=== PATIENT | female | born 1990 | race American Indian/Alaskan Native ===

== ENCOUNTER 2017-02-03 11:39 | Emergency (ER) | payer OTHER, MEDICAID ==
[2017-02-03 11:52] VITALS: BMI 26.4
[2017-02-03 12:01] VITALS: BP 131/77; PULSE 90; RESP 16; TEMP 98.2; O2SAT 100
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
--- NOTE | 2017-02-03 13:37 | RAD ---
PROCEDURE: Radiographs of the Chest and Left Ribs. HISTORY: injury COMPARISON: None available. TECHNIQUE: Frontal radiograph of the chest and multiple oblique radiographs of the left ribs were obtained. FINDINGS: LEFT RIBS: No acute displaced fracture identified. LUNGS: No focal consolidation. Please note that chest x-ray has limited sensitivity for the detection of pulmonary masses. PLEURA: No significant pleural effusion. No definite pneumothorax. CARDIOVASCULAR: Heart size appears within normal limits. OTHER FINDINGS: Bilateral nipple rings. IMPRESSION: Unremarkable radiographs of the chest and left ribs. No acute displaced left rib fracture identified.
--- NOTE | 2017-02-03 13:42 | RAD ---
PROCEDURE: Cervical Spine Radiographs. HISTORY: Pain. COMPARISON: None. FINDINGS: BONES: Alignment maintained. No fracture. Dens Intact. DISC SPACES: Normal. SOFT TISSUES: Normal. No prevertebral soft tissue swelling. OTHER FINDINGS: None. IMPRESSION: Unremarkable cervical spine radiographs
== END 2017-02-03 13:21 | disposition home or self-care (01) ==
LOC: C.ER 11:39
DX: S29.011A Strain of muscle and tendon of front wall of thorax, initial encounter (principal); S16.1XXA Strain of muscle, fascia and tendon at neck level, initial encounter; V49.49XA Driver injured in collision with other motor vehicles in traffic accident, initial encounter; O26.891 Other specified pregnancy related conditions, first trimester; Z3A.00 Weeks of gestation of pregnancy not specified

== ENCOUNTER 2018-02-12 18:38 | Emergency (ER) | payer MEDICAID, OTHER ==
[2018-02-12 18:39] VITALS: BMI 26.4
[2018-02-12 18:47] VITALS: TEMP 98.3
--- NOTE | 2018-02-12 19:45 | C.PDOC ---
History Of Present Illness 28 year old female presents to the ED c/o mid sternal chest pain for the past couple of months. Patient reports she does a lot of heavy lifting at her job in the [employer]. Patient states she saw her PMD and had an EKG done. Patient denies fever, chills, headache, nausea, vomit, visual changes, SOB, palpitations, weakness, numbness. Patient also states that she gets these symptoms when she gets a lot of stress Time Seen by Provider: 02/12/18 19:45 Chief Complaint (Nursing): Chest Pain History Per: Patient History/Exam Limitations: no limitations Onset/Duration Of Symptoms: Other (months) Current Symptoms Are (Timing): Still Present Quality: "Pain" Exacerbating Factors: Exertion Recent travel outside of the [place]: No Additional History Per: Patient Past Medical History Reviewed: Historical Data, Nursing Documentation, Vital Signs Vital Signs: Last Vital Signs Temp 98.3 F 02/12/18 18:44 Pulse 80 02/12/18 18:44 Resp 18 02/12/18 18:44 BP 119/74 02/12/18 18:44 Pulse Ox 100 02/12/18 18:44 - Medical History PMH: No Chronic Diseases Denies: Chronic Kidney Disease Surgical History: No Surg Hx - [facility] Procedures INJECT/INFUSE NEC (11/19/14) REPAIR OF HAMMER TOE (07/15/14) Family History: States: Unknown Family Hx - Social History Hx Alcohol Use: Yes Hx Substance Use: No - Immunization History Hx Tetanus Toxoid Vaccination: No Hx Influenza Vaccination: No Hx Pneumococcal Vaccination: No Review Of Systems Constitutional: Negative for: Fever, Chills Eyes: Negative for: Vision Change Cardiovascular: Positive for: Chest Pain. Negative for: Palpitations Respiratory: Negative for: Cough, Shortness of Breath Gastrointestinal: Negative for: Nausea, Vomiting, Abdominal Pain Skin: Negative for: Rash Neurological: Negative for: Weakness, Numbness, Headache, Dizziness Physical Exam - Physical Exam Appears: Non-toxic, No Acute Distress Skin: Warm, Dry Head: Normacephalic Eye(s): bilateral: Normal Inspection Neck: Supple Chest: Symmetrical, No Tenderness Cardiovascular: Rhythm Regular Respiratory: No Rales, No Rhonchi, No Wheezing Gastrointestinal/Abdominal: Soft, No Tenderness, No Guarding, No Rebound Extremity: Bilateral: Atraumatic, Normal Color And Temperature, Normal ROM Neurological/Psych: Oriented x3, Normal Speech, Normal Cognition Gait: Steady ED Course And Treatment - Laboratory Results Result Diagrams: 02/12/18 20:01 02/12/18 20:01 ECG: Interpreted By Me, Viewed By Me ECG Rhythm: Sinus Rhythm (76), Nonspecific Changes O2 Sat by Pulse Oximetry: 100 (ON RA) Pulse Ox Interpretation: Normal - Radiology CXR: Interpreted by Me, Viewed By Me CXR Interpretation: No: Infiltrates, Fracture, Pnemothorax Progress Note: Plan: - EKG. - Labs. - Aspirin 325 mg PO. - UA Reevaluation Time: 21:02 Reassessment Condition: Improved Medical Decision Making Medical Decision Making: I considered the following diagnoses: acute coronary syndrome, pulmonary embolism, lower respiratory infection, aortic dissection/aneurysm, pneumothorax, pericarditis, esophagitis/GERD, zoster and esophageal rupture but found them to be unlikely based on the history, physical exam, and diagnostics. My conclusions regarding the unlikely diagnoses were based on: the absence of significant EKG abnormalities, the lack of suggestive x-ray findings, the absence of significant abnormalities on cardiac monitoring, the absence of asymmetric pulses,Pt is chest pain free and wants to go home Upon provider reevaluation patient is feeling better, is medically stable, and requires no further treatment in the ED at this time. Patient will be discharged home . Counseling was provided and all questions were answered regarding diagnosis and need for follow up with dr Caalhere is agreement to discharge plan. Return if symptoms persist or worsen. Disposition Counseled Patient/Family Regarding: Studies Performed, Diagnosis, Need For Followup - Disposition Referrals: Sg Victoria MD [Staff Provider] - Disposition: HOME/ ROUTINE Disposition Time: 19:45 Condition: FAIR Additional Instructions: Please return if symptoms recur Instructions: Anxiety, Adult (DC), Costochondritis (DC) Forms: [employer] (Faroese) - Clinical Impression Clinical Impression: Anxiety, Costochondral chest pain - Scribe Statement The provider has reviewed the documentation as recorded by the Scribe Torsten Cardoza All medical record entries made by the Scribe were at my direction and personally dictated by me. I have reviewed the chart and agree that the record accurately reflects my personal performance of the history, physical exam, medical decision making, and the department course for this patient. I have also personally directed, reviewed, and agree with the discharge instructions and disposition.
[2018-02-12] MEDS ORDERED: Aspirin 325 mg EC Tablets PO STA (19:53)
[2018-02-12] MEDS ORDERED: Aspirin 325 mg EC Tablets PO ONE (19:59)
[2018-02-12 20:05] LABS: BASO # 0.1 K/uL (0.0-0.2); BASO % 1.2 % (0.0-2.0); EOS # 0.1 K/uL (0.0-0.7); EOS % 2.1 % (0.0-4.0); HEMOGLOBIN 12.5 g/dL (11.0-16.0); LYMPH # 2.1 K/uL (1.0-4.3); LYMPH % 34.4 % (20.0-40.0); MEAN CELL VOLUME 90.3 fL (81.0-99.0); MEAN CORPUSCULAR HEMOGLOBIN 30.4 pg (27.0-31.0); MEAN CORPUSCULAR HGB CONC 33.6 g/dL (33.0-37.0); MONO # 0.6 K/uL (0.0-0.8); MONO % 9.7 % (0.0-10.0); NEUT # 3.2 K/uL (1.8-7.0); NEUT % 52.6 % (50.0-75.0); RBC 4.12 Mil/uL (3.80-5.20); RED CELL DISTRIBUTION WIDTH 13.3 % (11.5-14.5); WHITE BLOOD COUNT 6.1 K/uL (4.8-10.8)
[2018-02-12 20:07] LABS: HCG,QUALITATIVE URINE NEGATIVE (NEGATIVE)
[2018-02-12 20:15] LABS: SQUAMOUS EPITHIAL 3 /hpf (0-5); URINE BACTERIA RARE (<OCC); URINE BILIRUBIN NEGATIVE (NEGATIVE); URINE CLARITY Clear (Clear); URINE COLOR Yellow (YELLOW); URINE GLUCOSE (UA) NORMAL (Normal); URINE LEUKOCYTE ESTERASE NEG Leu/uL (Negative); URINE PROTEIN NEGATIVE (NEGATIVE)
[2018-02-12 20:16] LABS: URINE BLOOD TRACE (NEGATIVE)
[2018-02-12 20:32] LABS: ALB/GLOB RATIO 1.4 (1.0-2.1); ALBUMIN 4.2 g/dL (3.5-5.0); ALT/SGPT 57 U/L (9-52); AST/SGOT 59 U/L (14-36); BLOOD UREA NITROGEN 16 mg/dL (7-17); GFR NON-AFRICAN AMERICAN > 60
[2018-02-12 21:15] VITALS: BP 110/70; PULSE 70; RESP 14; O2SAT 98
--- NOTE | 2018-02-13 10:36 | RAD ---
Chest x-ray two views HISTORY: Chest pain. COMPARISON: None available. Findings : No focal infiltrate or effusion. Heart size within normal limits. Bibasilar breast shadows. IMPRESSION: No focal infiltrate or effusion.
--- NOTE | 2018-02-14 11:52 | CARD ---
APPROVED REPORT Date of service: 02/12/2018 EKG Measurement Heart [id number] <Conclusion> Normal sinus rhythm with sinus arrhythmia Normal ECG
== END 2018-02-12 21:15 | disposition home or self-care (01) ==
LOC: C.ER 18:38
DX: F41.9 Anxiety disorder, unspecified (principal); R07.89 Other chest pain

== ENCOUNTER 2018-03-19 18:20 | Emergency (ER) | payer MEDICAID ==
[2018-03-19 18:30] VITALS: BMI 29.0
[2018-03-19 18:33] VITALS: BP 124/81; PULSE 93; RESP 18; TEMP 97.9; O2SAT 98
[2018-03-19] MEDS ORDERED: Apap-Butalbital-Caffeine 325-50-40mg Tab PO STA (19:31)
[2018-03-19] MEDS ORDERED: Apap-Butalbital-Caffeine 325-50-40mg Tab ONE (19:41)
--- NOTE | 2018-03-19 20:14 | C.PDOC ---
History Of Present Illness 28 y/o female comes in complaining of frontal headache since earlier today, as well as pain to left upper chest that is described as intermittent stabbing sensation around her left upper breast area. States she had some problems at work and was feeling stressed out and crying when the symptoms started shortly after. Denies nausea, vomiting, photophobia, SOB, or palpitations, no h/o of prolonged travel or prolonged immobility state, no OCP. Patient was diagnosed with anxiety and prescribed xanax but states she prefers not to take it. Time Seen by Provider: 03/19/18 19:09 Chief Complaint (Nursing): Chest Pain History Per: Patient History/Exam Limitations: no limitations Onset/Duration Of Symptoms: Hrs Current Symptoms Are (Timing): Still Present Past Medical History Reviewed: Historical Data, Nursing Documentation, Vital Signs Vital Signs: Last Vital Signs Temp 97.9 F 03/19/18 18:30 Pulse 93 H 03/19/18 18:30 Resp 18 03/19/18 18:30 BP 124/81 03/19/18 18:30 Pulse Ox 98 03/19/18 18:30 - Medical History PMH: Anxiety Denies: Chronic Kidney Disease - [facility] Procedures INJECT/INFUSE NEC (11/19/14) REPAIR OF HAMMER TOE (07/15/14) Family History: States: No Known Family Hx - Social History Hx Alcohol Use: Yes Hx Substance Use: No - Immunization History Hx Tetanus Toxoid Vaccination: No Hx Influenza Vaccination: No Hx Pneumococcal Vaccination: No Review Of Systems Except As Marked, All Systems Reviewed And Found Negative. Eyes: Negative for: Vision Change Cardiovascular: Positive for: Chest Pain (left upper chest). Negative for: Palpitations Respiratory: Negative for: Shortness of Breath Gastrointestinal: Negative for: Nausea, Vomiting Neurological: Positive for: Headache Physical Exam - Physical Exam Appears: Non-toxic, No Acute Distress Skin: Warm, Dry Head: Atraumatic, Normacephalic Eye(s): bilateral: Normal Inspection, PERRL, EOMI Oral Mucosa: Moist Neck: Supple Chest: Symmetrical, No Tenderness Cardiovascular: Rhythm Regular, No Murmur Respiratory: Normal Breath Sounds, No Rales, No Rhonchi, No Wheezing Extremity: Bilateral: Atraumatic, Normal Color And Temperature, Normal ROM Neurological/Psych: Oriented x3, Normal Speech ED Course And Treatment ECG: Interpreted By Me, Viewed By Me ECG Rhythm: Sinus Rhythm (Normal) Interpretation Of ECG: No ST/T wave abnormalities. Rate From EC O2 Sat by Pulse Oximetry: 98 (RA) Pulse Ox Interpretation: Normal Progress Note: Chest XR ordered. Patient was given fioricet PO. On reevaluation, pt reports headache has much improved, pt no longer having chest villatoro. Advised follow up with PMD and to continue NSAIDs as needed Reevaluation Time: 04:09 Reassessment Condition: Improved Disposition Counseled Patient/Family Regarding: Diagnosis, Need For Followup - Disposition Referrals: Sg Victoria MD [Staff Provider] - Disposition: HOME/ ROUTINE Disposition Time: 20:29 Condition: STABLE Additional Instructions: Take meds as directed Follow up with PMD Return to ED if worse Prescriptions: Acetaminophen/Butalbital/Caf [Fioricet] 1 tab PO TID PRN #20 tab PRN Reason: Headache Instructions: Chest Pain That Is Not Caused by the Heart (DC), Migraine Headache (DC) Forms: [facility] (Telugu), Work Excuse - Clinical Impression Clinical Impression: Headache, migraine, Nonspecific chest pain - 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 - Scribe Statement The provider has reviewed the documentation as recorded by the Scribasuncion Maradiaga All medical record entries made by the Barryibasuncion were at my direction and personally dictated by me. I have reviewed the chart and agree that the record accurately reflects my personal performance of the history, physical exam, medical decision making, and the department course for this patient. I have also personally directed, reviewed, and agree with the discharge instructions and disposition.
--- NOTE | 2018-03-20 10:28 | RAD ---
HISTORY: chest pain COMPARISON: Chest x-ray performed 02/12/18 TECHNIQUE: Chest PA and lateral FINDINGS: LUNGS: No focal consolidation. Please note that chest x-ray has limited sensitivity for the detection of pulmonary masses. PLEURA: No significant pleural effusion identified. No definite pneumothorax . CARDIOVASCULAR: Heart size appears within normal limits. No atherosclerotic calcification present. OSSEOUS STRUCTURES: No acute osseous abnormality identified. VISUALIZED UPPER ABDOMEN: Unremarkable. OTHER FINDINGS: Bilateral nipple rings. IMPRESSION: No focal consolidation.
== END 2018-03-19 20:39 | disposition home or self-care (01) ==
LOC: C.ER 18:20
DX: G43.909 Migraine, unspecified, not intractable, without status migrainosus (principal); R07.9 Chest pain, unspecified